=== PATIENT | female | born 1965 ===

== ENCOUNTER → 2016-09-14 | Outpatient (CLI) | payer BC | END | disposition home or self-care (01) | LOC: C.PAPS 11:19 | PROVIDERS: ATTEND Obstetrics & Gynecology | DX: C55 Malignant neoplasm of uterus, part unspecified (principal) ==

== ENCOUNTER → 2017-03-04 | Outpatient (CLI) | payer BC ==
--- NOTE | 2017-03-07 14:55 | MAMMOGRAPHY REPORT ---
BILATERAL DIGITAL SCREENING MAMMOGRAM TOMOSYNTHESIS WITH CAD: 03/04/2017 CLINICAL HISTORY: Routine screening. Patient has no complaints. TECHNIQUE: Breast tomosynthesis in addition to standard 2D mammography was performed. Current study was also evaluated with a Computer Aided Detection (CAD) system. COMPARISON: Comparison is made to exams dated: 02/18/2016 mammogram, 02/13/2015 mammogram, and 013 mammogram - [facility]. BREAST COMPOSITION: There are scattered areas of fibroglandular density in both breasts. FINDINGS: There is a nodular 9 mm asymmetry seen within the right breast along the posterior nipple l ine on the cc view middle depth, possibly projecting superiorly on the MLO view, which may represent normal overlapping fibroglandular tissue although spot compression tomosynthesis views and possible b reast ultrasound are recommended for further evaluation. The remainder of both breasts are stable compared to prior exams, without suspicious masses, calcific ations, or areas of architectural distortion noted. IMPRESSION: ACR BI-RADS CATEGORY 0: INCOMPLETE EVALUATION: NEED ADDITIONAL IMAGING EVALUATION Right breast asymmetry, for which additional imaging evaluation is recommended. The patient will be called to schedule an appointment. Approximately 10% of breast cancers are not detected with mammography. A negative mammographic report should not delay biopsy if a clinically suggestive mass is present. Annette Hutton M.D. ah/:03/04/2017 17:05:31 Customer Experience Retail Clerk: Ashley BETANCUR)(M), [facility] letter sent: Addl Imaging 0 BI-RADS Code: ACR BI-RADS Category 0: Incomplete Evaluation: Need Additional Imaging Evaluation
== END | disposition home or self-care (01) ==
LOC: C.MAMM 09:06
PROVIDERS: ATTEND Family Medicine
DX: Z12.31 Encounter for screening mammogram for malignant neoplasm of breast (principal); R92.8 Other abnormal and inconclusive findings on diagnostic imaging of breast

== ENCOUNTER → 2017-03-30 | Outpatient (CLI) | payer BC ==
--- NOTE | 2017-04-01 08:15 | MAMMOGRAPHY REPORT ---
UNILATERAL RIGHT DIGITAL DIAGNOSTIC MAMMOGRAM TOMOSYNTHESIS AND TARGETED RIGHT ULTRASOUND: 03/30/2017 CLINICAL HISTORY: 51-year-old woman called back from screening mammography for an nodular asymmetry a long the posterior nipple line on the right CC view. TECHNIQUE: Spot compression right CC and MLO tomosynthesis images with reconstructed C-view were obta ined. COMPARISON: Comparison is made to exams dated: 03/04/2017 mammogram, 02/18/2016 mammogram, 02/13/2015 mammogram, and 01/26/2013 mammogram - [facility]. BREAST COMPOSITION: There are scattered areas of fibroglandular density in the right breast. FINDINGS: The supplemental spot compression tomosynthesis CC view of the right breast demonstrates pa rtial effacement of the 9 mm nodular asymmetry in the middle one third of the breast along the senior marketing associate ior nipple line. It is still thought to be identified on the CC spot compression tomosynthesis slice 35/78. When comparing the CC spot compression view back to all available prior mammograms, the appe arance is somewhat similar to the 2014, and 2012 mammograms, suggesting benignity. Further evaluatio n with ultrasound was performed. No other obvious mass, focal area of distortion or suspicious calci fications are seen in the visualized right breast. No corresponding abnormality is identified on the spot compression MLO tomosynthesis images. Targeted ultrasound was performed throughout the right breast 11:00, 12:00, 1:00, retroareolar and 5: 00 through 7:00 axes. Sonographically normal tissue is seen without a suspicious solid or cystic mas s. IMPRESSION: ACR-BI-RADS CATEGORY 3: PROBABLY BENIGN, TARGETED ULTRASOUND ACR-BI-RADS CATEGORY 3: PRO BABLY BENIGN 1. The supplemental spot compression tomosynthesis views of the right breast demonstrate a 9 mm nodu lar asymmetry located along the posterior nipple line is less conspicuous and could represent normal fibroglandular tissue, as the appearance is also somewhat similar to previous mammograms. No suspici ous sonographic correlate was identified. However, a short interval follow-up right diagnostic tomos ynthesis mammogram and possible ultrasound is recommended to ensure stability in 6 months, given the slight increased conspicuity on the 03/04/2017 screening exam. These results and recommendations were discussed with the patient at the time of the exam. She tenta tively scheduled a follow-up appointment prior to leaving our department. Approximately 10% of breast cancers are not detected with mammography. A negative mammographic report should not delay biopsy if a clinically suggestive mass is present. Trudy Pardo M.D. ay/:03/30/2017 12:38:51 Feltmaker And Weigher: Deanne Garcia RT(R)(M), [facility] letter sent: Follow Up Recommended 3 BI-RADS Code: ACR-BI-RADS Category 3: Probably Benign Ultrasound BI-RADS: ACR-BI-RADS Category 3: Pr obably Benign
== END ==
LOC: C.MAMM 08:04
PROVIDERS: ATTEND Family Medicine
DX: N64.59 Other signs and symptoms in breast (principal)

== ENCOUNTER → 2017-09-27 | Outpatient (CLI) | payer BC ==
--- NOTE | 2017-09-27 13:17 | MAMMOGRAPHY REPORT ---
UNILATERAL RIGHT DIGITAL DIAGNOSTIC MAMMOGRAM TOMOSYNTHESIS WITH CAD: 09/27/2017 CLINICAL HISTORY: 52-year-old woman presents for follow-up in the right breast for a nodular asymmetr y along the posterior nipple line on the CC view that effaced with additional supplemental tomosynthe sis images and no suspicious sonographic correlate was identified. TECHNIQUE: Right breast tomosynthesis in addition to standard 2D mammography was performed. Current radha anna was also evaluated with a Computer Aided Detection (CAD) system. COMPARISON: Comparison is made to exams dated: 01/26/2013 mammogram, 02/13/2015 mammogram, 02/18/2016 mammogram, 03/04/2017 mammogram, 03/30/2017 ultrasound, and 03/30/2017 mammogram - [facility]. BREAST COMPOSITION: There are scattered areas of fibroglandular density in the right breast. FINDINGS: There are 3 stable circumscribed lobulated subcentimeter masses in the upper outer middle o ne third of the right breast, which are unchanged dating back to at least 2012 and most compatible wi th benign intramammary lymph nodes. There is a 5 mm nodular asymmetry in the middle one third of the right breast slightly lateral to the posterior nipple line on the CC view identified in the area of previously observed 9 mm nodular asymmetry. This asymmetry is decreased in size and prominence chris ring to the prior mammogram although this could be in part due to positioning. There is no associate d calcification or spiculation. No other new suspicious masses, asymmetries, areas of architectural distortion or suspicious microcalcifications identified. There are minimal vascular calcifications i n the right breast. IMPRESSION: ACR-BI-RADS CATEGORY 3: PROBABLY BENIGN A subcentimeter asymmetry along the posterior nipple line on the right CC view is less prominent comp aring to the prior full-field right CC view dated 03/04/2017, suggesting benignity. Given that this could be in part due to positioning, another short interval follow-up right diagnostic tomosynthesis mammogram and possible ultrasound is recommended to ensure longer stability. Annual left mammography will also be due at that time. These results and recommendations were discussed with the patient at the time of the exam. Approximately 10% of breast cancers are not detected with mammography. A negative mammographic report should not delay biopsy if a clinically suggestive mass is present. Trudy Pardo M.D. ay/:09/27/2017 08:55:19 [place] Program Coordinator: Deanne YOUNG(R)(M), [facility] letter sent: Follow Up Recommended 3 BI-RADS Code: ACR-BI-RADS Category 3: Probably Benign
== END | disposition home or self-care (01) ==
LOC: C.MAMM 08:02
PROVIDERS: ATTEND Family Medicine
DX: R92.8 Other abnormal and inconclusive findings on diagnostic imaging of breast (principal); N64.89 Other specified disorders of breast